=== PATIENT | male | born 1955 | race Caucasian/White ===

== ENCOUNTER 2017-09-20 22:20 | Observation (INO) | payer OTHER ==
[~2017-09-20] VITALS: Ht 172.7 cm; Wt 69.1 kg
[2017-09-20 23:25] LABS: HEMATOCRIT 34.3 % (38.0-50.0); HEMOGLOBIN 11.7 G/DL (12.5-16.6); MCH 28.5 PG (29.0-34.0); MCHC 34.1 G/DL (30.0-36.0); MCV 83.5 FL (86-99); PLATELET COUNT 280 K/uL (156-360); RBC DIS.WIDTH-CV 12.2 % (11.8-14.6); RBC DIS.WIDTH-SD 37.2 % (39-53); RED BLOOD COUNT 4.11 M/uL (4.00-5.50); WHITE BLOOD COUNT 8.6 K/uL (4.1-10.2)
[2017-09-20 23:35] LABS: ALBUMIN 3.4 g/dL (3.2-4.8); CHLORIDE 100 mEq/L (99-109); POTASSIUM 4.3 mEq/L (3.7-5.4); SODIUM 139 mEq/L (136-147)
[2017-09-20 23:37] LABS: GLUCOSE 131 mg/dL (70-99); TOTAL PROTEIN 7.2 g/dL (6.4-8.3)
[2017-09-20 23:39] LABS: TOTAL BILIRUBIN 0.5 mg/dL (0.0-1.0)
[2017-09-20 23:41] LABS: ALKALINE PHOSPHATASE 135 IU/L (3-129); CREATININE 0.8 mg/dL (0.6-1.3); GFR ESTIMATE (CALCULATED) > 59 mL/min/ (58.99-99999)
[2017-09-20 23:42] LABS: UREA NITROGEN (BUN) 12 mg/dL (9-23)
[2017-09-20 23:43] LABS: AST (GOT) 36 IU/L (2-34)
[2017-09-20 23:44] LABS: ALT (GPT) 30 IU/L (3-49); LIPASE 28 U/L (1.0-51.0)
[2017-09-21 00:23] LABS: INTER. NORMALIZED RATIO 1.5
[2017-09-21 00:25] LABS: PTT 33.2 SEC (25-37)
[2017-09-21 06:10] VITALS: BP 123/61
[2017-09-21 10:00] LABS: HEMATOCRIT 33.4 % (38.0-50.0); MCH 27.6 PG (29.0-34.0); MCHC 32.9 G/DL (30.0-36.0); MCV 83.7 FL (86-99); PLATELET COUNT 228 K/uL (156-360); RBC DIS.WIDTH-CV 12.2 % (11.8-14.6); RBC DIS.WIDTH-SD 37.1 % (39-53); RED BLOOD COUNT 3.99 M/uL (4.00-5.50); WHITE BLOOD COUNT 7.1 K/uL (4.1-10.2)
[2017-09-21 10:30] LABS: ALBUMIN 2.9 G/DL (3.2-4.8); ALKALINE PHOSPHATASE 100 IU/L (3-129); ALT (GPT) 21 IU/L (3-49); AST (GOT) 26 IU/L (2-34); CHLORIDE 106 MEQ/L (99-109); CREATININE 0.7 MG/DL (0.6-1.3); DIRECT BILIRUBIN 0.2 mg/dL (0.0-0.3); GFR ESTIMATE (CALCULATED) > 59 mL/min/ (58.99-99999); GLUCOSE 106 mg/dL (70-99); SODIUM 142 MEQ/L (136-147); TOTAL BILIRUBIN 0.5 MG/DL (0.0-1.0); TOTAL PROTEIN 6.7 G/DL (6.4-8.3); UREA NITROGEN (BUN) 8 mg/dL (9-23)
[2017-09-21 16:32] VITALS: BP 171/80
[2017-09-21 23:33] VITALS: BP 131/64
[2017-09-22 08:11] VITALS: BP 136/74
[2017-09-22 16:25] VITALS: BP 120/62
[2017-09-22 23:25] VITALS: BP 130/60
[2017-09-23 06:42] LABS: HEMATOCRIT 33.8 % (38.0-50.0); MCH 27.3 PG (29.0-34.0); MCHC 32.5 G/DL (30.0-36.0); MCV 83.9 FL (86-99); PLATELET COUNT 244 K/uL (156-360); RBC DIS.WIDTH-CV 12.3 % (11.8-14.6); RBC DIS.WIDTH-SD 37.8 % (39-53); RED BLOOD COUNT 4.03 M/uL (4.00-5.50); WHITE BLOOD COUNT 7.5 K/uL (4.1-10.2)
[2017-09-23 07:07] LABS: ALBUMIN 2.4 G/DL (3.2-4.8); ALKALINE PHOSPHATASE 93 IU/L (3-129); ALT (GPT) 16 IU/L (3-49); AST (GOT) 18 IU/L (2-34); CHLORIDE 102 MEQ/L (99-109); CREATININE 0.6 MG/DL (0.6-1.3); GFR ESTIMATE (CALCULATED) > 59 mL/min/ (58.99-99999); GLUCOSE 142 mg/dL (70-99); POTASSIUM 3.9 MEQ/L (3.7-5.4); SODIUM 136 MEQ/L (136-147); TOTAL BILIRUBIN 0.5 MG/DL (0.0-1.0); UREA NITROGEN (BUN) 8 mg/dL (9-23)
[2017-09-23 07:09] LABS: TOTAL PROTEIN 5.3 G/DL (6.4-8.3)
[2017-09-23 07:45] VITALS: BP 128/62
[2017-09-23] MEDS ORDERED: AUGMENTIN875 MG PO (11:26)
[2017-09-23] MEDS ORDERED: OXYCODONE HCL5 MG PO (11:28)
== END 2017-09-23 13:35 | disposition home or self-care (01) ==
LOC: EME 22:20 → EDOF 09-21 05:06 → 5EAST 09-21 05:06 → EDOF 09-21 05:06 → ENRESERV 09-21 05:07 → 5EAST 09-21 05:55
PROVIDERS: Emergency Medicine; Physician Assistant
PROC: 0FB13ZX Excision of Right Lobe Liver, Percutaneous Approach, Diagnostic (ICD-10-PCS; principal; 2017-09-21)
DX: C22.9 Malignant neoplasm of liver, not specified as primary or secondary (principal); B18.2 Chronic viral hepatitis C; M25.511 Pain in right shoulder; Z87.891 Personal history of nicotine dependence
CPT/HCPCS: 73030; 74183; 77012; 80048; 80053; 80076; 82105 90; 83690; 85027; 85610; 85730; 87040; 88305; 88341 TC; 88342 TC; 99281; 99284; G0378; J0696; J1644; J3010; S0030

== ENCOUNTER → 2017-09-20 | Outpatient (CLI) | payer OTHER ==
[~2017-09-20] MED LIST: AUGMENTIN875 MG PO; OXYCODONE HCL5 MG PO
== END | disposition home or self-care (01) ==
LOC: RAD 20:14
DX: K76.89 Other specified diseases of liver (principal); J90 Pleural effusion, not elsewhere classified; J98.11 Atelectasis; Z86.19 Personal history of other infectious and parasitic diseases
CPT/HCPCS: 74176

== ENCOUNTER 2017-10-27 21:50 | Inpatient (IN) | payer OTHER ==
[~2017-10-27] VITALS: Ht 175.3 cm; Wt 76.2 kg
[2017-10-27 22:43] LABS: BASOPHIL (%) 0.1 % (0-1); EOSINOPHIL (%) 0.1 % (0-5); HEMATOCRIT 30.6 % (38.0-50.0); HEMOGLOBIN 10.7 G/DL (12.5-16.6); MCH 24.7 PG (29.0-34.0); MCV 70.5 FL (86-99); MONOCYTE (%) 7.4 % (3-12); MONOCYTE COUNT 1.4 K/uL (0-0.8); NEUTROPHIL (%) 86.4 % (45-76); NEUTROPHIL COUNT 16.6 K/uL (1.8-6.4); PLATELET COUNT 286 K/uL (156-360); RBC DIS.WIDTH-CV 16.2 % (11.8-14.6); RBC DIS.WIDTH-SD 40.9 % (39-53); RED BLOOD COUNT 4.34 M/uL (4.00-5.50); WHITE BLOOD COUNT 19.2 K/uL (4.1-10.2)
[2017-10-27 22:44] LABS: INTER. NORMALIZED RATIO 1.5
[2017-10-27 22:46] LABS: ALBUMIN 2.2 g/dL (3.2-4.8); CHLORIDE 82 mEq/L (99-109); POTASSIUM 5.3 mEq/L (3.7-5.4); SODIUM 120 mEq/L (136-147)
[2017-10-27 22:47] LABS: PTT 32.4 SEC (25-37)
[2017-10-27 22:49] LABS: GLUCOSE 177 mg/dL (70-99); TOTAL PROTEIN 6.3 g/dL (6.4-8.3)
[2017-10-27 22:51] LABS: TOTAL BILIRUBIN 4.4 mg/dL (0.0-1.0)
[2017-10-27 22:52] LABS: ALKALINE PHOSPHATASE 414 IU/L (3-129); CREATININE 0.7 mg/dL (0.6-1.3); GFR ESTIMATE (CALCULATED) > 59 mL/min/ (58.99-99999)
[2017-10-27 22:54] LABS: AST (GOT) 76 IU/L (2-34); DIRECT BILIRUBIN 3.5 mg/dL (0.0-0.3); UREA NITROGEN (BUN) 15 mg/dL (9-23)
[2017-10-27 22:55] LABS: ALT (GPT) 48 IU/L (3-49)
[2017-10-27 22:58] LABS: TROP-I INTERPRETATION NEGATIVE; TROPONIN-I < 0.01 ng/mL (0.0-0.30)
[2017-10-28] MEDS ORDERED: ULTRAM ER300 MG PO (00:33)
[2017-10-28] MEDS ORDERED: ULTRAM50 MG PO (00:34)
[2017-10-28] MEDS ORDERED: MILK OF MAGN PO (00:34)
[2017-10-28] MEDS ORDERED: MIRALAX17 GM PO (00:34)
[2017-10-28 02:08] LABS: APPEARANCE SL.HAZY ((CLEAR)); BILIRUBIN SMALL; BLOOD NEGATIVE; COLOR AMBER ((YELLOW)); GLUCOSE (STRIP) NEGATIVE; KETONES NEGATIVE; LEUKOCYTES NEGATIVE; NITRITE NEGATIVE; PROTEIN (STRIP) NEGATIVE
[2017-10-28 02:15] LABS: BACTERIA RARE /HPF; EPITHELIAL CELLS NONE SEEN /HPF; MUCUS TRACE /LPF; RED BLOOD CELLS 0-5 /HPF (0-5); UCUL ADDED? NO; WHITE BLOOD CELLS 0-5 /HPF (0-5)
[2017-10-28 04:53] VITALS: BP 136/82
[2017-10-28 06:53] LABS: TROP-I INTERPRETATION NEGATIVE; TROPONIN-I < 0.01 ng/mL (0.0-0.30)
[2017-10-28 08:45] LABS: TYPE OF FLUID PLEURAL
[2017-10-28 09:22] LABS: APPEARANCE SL. HAZY-YELLOW; BODY FLUID EOSINOPHILS 0 % (0-25); BODY FLUID RBC'S 2000 /MM^3 (0-100); BODY FLUID WBC'S 1329 /MM^3 (0-500); MONONUCLEAR WBC'S 26 %; POLYNUCLEAR WBC'S 74 % (0-25)
[2017-10-28 09:36] LABS: BODY FLUID GLUCOSE 131 MG/DL; BODY FLUID PROTEIN < 3.0 G/DL
[2017-10-28 09:37] LABS: HEMATOCRIT 28.1 % (38.0-50.0); HEMOGLOBIN 9.6 G/DL (12.5-16.6); MCH 23.9 PG (29.0-34.0); MCHC 34.2 G/DL (30.0-36.0); MCV 70.1 FL (86-99); PLATELET COUNT 242 K/uL (156-360); RBC DIS.WIDTH-CV 16.2 % (11.8-14.6); RBC DIS.WIDTH-SD 40.7 % (39-53); RED BLOOD COUNT 4.01 M/uL (4.00-5.50); WHITE BLOOD COUNT 15.6 K/uL (4.1-10.2)
[2017-10-28 10:32] VITALS: BP 135/80
[2017-10-28 11:18] LABS: CHLORIDE 84 MEQ/L (99-109); CREATININE 0.5 MG/DL (0.6-1.3); GFR ESTIMATE (CALCULATED) > 59 mL/min/ (58.99-99999); GLUCOSE 121 mg/dL (70-99); POTASSIUM 4.7 MEQ/L (3.7-5.4); UREA NITROGEN (BUN) 14 mg/dL (9-23)
[2017-10-28 11:19] LABS: SODIUM 118 MEQ/L (136-147)
[2017-10-28 12:10] LABS: TROP-I INTERPRETATION NEGATIVE; TROPONIN-I < 0.01 ng/mL (0.0-0.30)
[2017-10-28 12:43] VITALS: BP 134/76
[2017-10-28 16:49] VITALS: BP 131/84
[2017-10-28 16:54] LABS: CHLORIDE 84 MEQ/L (99-109); CREATININE 0.5 MG/DL (0.6-1.3); GFR ESTIMATE (CALCULATED) > 59 mL/min/ (58.99-99999); GLUCOSE 172 mg/dL (70-99); UREA NITROGEN (BUN) 16 mg/dL (9-23)
[2017-10-28 16:55] LABS: SODIUM 117 MEQ/L (136-147)
[2017-10-28 20:04] VITALS: BP 116/72
[2017-10-29 00:09] VITALS: BP 119/78
[2017-10-29 01:06] LABS: CHLORIDE 85 mEq/L (99-109); SODIUM 120 mEq/L (136-147)
[2017-10-29 01:08] LABS: GLUCOSE 139 mg/dL (70-99)
[2017-10-29 01:12] LABS: CREATININE 0.6 mg/dL (0.6-1.3); GFR ESTIMATE (CALCULATED) > 59 mL/min/ (58.99-99999)
[2017-10-29 01:13] LABS: UREA NITROGEN (BUN) 16 mg/dL (9-23)
[2017-10-29 04:04] VITALS: BP 118/72
[2017-10-29 06:49] LABS: BASOPHIL (%) 0.1 % (0-1); EOSINOPHIL (%) 0.1 % (0-5); HEMATOCRIT 27.7 % (38.0-50.0); HEMOGLOBIN 9.6 G/DL (12.5-16.6); IMMATURE GRANULOCYTE (%) 0.8 % (0.0-0.7); LYMPHOCYTE (%) 6.4 % (15-42); LYMPHOCYTE COUNT 1.1 K/uL (1.0-2.8); MCH 24.4 PG (29.0-34.0); MCHC 34.7 G/DL (30.0-36.0); MCV 70.3 FL (86-99); MONOCYTE (%) 7.9 % (3-12); MONOCYTE COUNT 1.3 K/uL (0-0.8); NEUTROPHIL (%) 84.7 % (45-76); NEUTROPHIL COUNT 14.3 K/uL (1.8-6.4); PLATELET COUNT 234 K/uL (156-360); RBC DIS.WIDTH-CV 16.7 % (11.8-14.6); RBC DIS.WIDTH-SD 42.2 % (39-53); RED BLOOD COUNT 3.94 M/uL (4.00-5.50); WHITE BLOOD COUNT 16.9 K/uL (4.1-10.2)
[2017-10-29 07:06] LABS: CHLORIDE 87 MEQ/L (99-109); CREATININE 0.7 MG/DL (0.6-1.3); GFR ESTIMATE (CALCULATED) > 59 mL/min/ (58.99-99999); GLUCOSE 148 mg/dL (70-99); MAGNESIUM 2.2 mg/dl (1.3-2.7); PHOSPHORUS 3.6 mg/dL (2.5-4.9); SODIUM 123 MEQ/L (136-147); UREA NITROGEN (BUN) 18 mg/dL (9-23)
[2017-10-29 07:07] LABS: ALBUMIN 1.8 G/DL (3.2-4.8); ALKALINE PHOSPHATASE 324 IU/L (3-129); ALT (GPT) 36 IU/L (3-49); AST (GOT) 63 IU/L (2-34); CHLORIDE 86 MEQ/L (99-109); CREATININE 0.6 MG/DL (0.6-1.3); GFR ESTIMATE (CALCULATED) > 59 mL/min/ (58.99-99999); GLUCOSE 149 mg/dL (70-99); POTASSIUM 4.9 MEQ/L (3.7-5.4); SODIUM 121 MEQ/L (136-147); TOTAL BILIRUBIN 4.5 MG/DL (0.0-1.0); TOTAL PROTEIN 5.3 G/DL (6.4-8.3); UREA NITROGEN (BUN) 18 mg/dL (9-23)
[2017-10-29 07:45] VITALS: BP 128/67
[2017-10-29 12:13] VITALS: BP 131/72
[2017-10-29 13:38] LABS: CHLORIDE 86 MEQ/L (99-109); CREATININE 0.7 MG/DL (0.6-1.3); GFR ESTIMATE (CALCULATED) > 59 mL/min/ (58.99-99999); GLUCOSE 179 mg/dL (70-99); SODIUM 124 MEQ/L (136-147); UREA NITROGEN (BUN) 18 mg/dL (9-23)
[2017-10-29 15:48] VITALS: BP 114/77
[2017-10-29 20:14] VITALS: BP 114/77
[2017-10-30] VITALS (7 sets, daily range): BP systolic 118–132; BP diastolic 70–86
[2017-10-30] LABS: BODY FLUID PH 7.8 (())
[2017-10-30 06:40] LABS: CHLORIDE 89 MEQ/L (99-109); CREATININE 0.6 MG/DL (0.6-1.3); GFR ESTIMATE (CALCULATED) > 59 mL/min/ (58.99-99999); GLUCOSE 130 mg/dL (70-99); POTASSIUM 5.2 MEQ/L (3.7-5.4); SODIUM 125 MEQ/L (136-147); UREA NITROGEN (BUN) 19 mg/dL (9-23)
[2017-10-31 05:03] VITALS: BP 129/70
[2017-10-31 05:57] LABS: BASOPHIL (%) 0.1 % (0-1); EOSINOPHIL (%) 0.1 % (0-5); HEMATOCRIT 27.6 % (38.0-50.0); HEMOGLOBIN 9.2 G/DL (12.5-16.6); IMMATURE GRANULOCYTE (%) 0.8 % (0.0-0.7); LYMPHOCYTE COUNT 1.1 K/uL (1.0-2.8); MCH 23.8 PG (29.0-34.0); MCHC 33.3 G/DL (30.0-36.0); MCV 71.5 FL (86-99); MONOCYTE (%) 8.3 % (3-12); MONOCYTE COUNT 1.2 K/uL (0-0.8); NEUTROPHIL (%) 82.7 % (45-76); NEUTROPHIL COUNT 11.7 K/uL (1.8-6.4); RBC DIS.WIDTH-CV 17.2 % (11.8-14.6); RBC DIS.WIDTH-SD 43.7 % (39-53); RED BLOOD COUNT 3.86 M/uL (4.00-5.50); WHITE BLOOD COUNT 14.2 K/uL (4.1-10.2)
[2017-10-31 06:15] LABS: ALBUMIN 1.6 G/DL (3.2-4.8); ALKALINE PHOSPHATASE 341 IU/L (3-129); ALT (GPT) 34 IU/L (3-49); AST (GOT) 55 IU/L (2-34); CHLORIDE 89 MEQ/L (99-109); CREATININE 0.7 MG/DL (0.6-1.3); GFR ESTIMATE (CALCULATED) > 59 mL/min/ (58.99-99999); GLUCOSE 150 mg/dL (70-99); POTASSIUM 5.2 MEQ/L (3.7-5.4); SODIUM 125 MEQ/L (136-147); TOTAL BILIRUBIN 3.7 MG/DL (0.0-1.0); TOTAL PROTEIN 4.7 G/DL (6.4-8.3); UREA NITROGEN (BUN) 19 mg/dL (9-23)
[2017-10-31 06:35] LABS: PLAT.SUFFICIENCY DECREASED
[2017-10-31 06:36] LABS: PLATELET COUNT 147 K/uL (156-360)
[2017-10-31 07:15] VITALS: BP 118/70
[2017-10-31 15:50] VITALS: BP 133/63
[2017-10-31 17:16] LABS: CHLORIDE 88 MEQ/L (99-109); SODIUM 124 MEQ/L (136-147)
[2017-10-31 17:22] LABS: CREATININE 0.7 MG/DL (0.6-1.3); GFR ESTIMATE (CALCULATED) > 59 mL/min/ (58.99-99999); GLUCOSE 148 mg/dL (70-99); UREA NITROGEN (BUN) 19 mg/dL (9-23)
[2017-10-31 23:15] VITALS: BP 123/73
[2017-11-01 05:59] LABS: BASOPHIL (%) 0.1 % (0-1); EOSINOPHIL (%) 0.2 % (0-5); HEMATOCRIT 27.4 % (38.0-50.0); HEMOGLOBIN 9.1 G/DL (12.5-16.6); IMMATURE GRANULOCYTE (%) 1.4 % (0.0-0.7); LYMPHOCYTE (%) 8.2 % (15-42); MCH 23.9 PG (29.0-34.0); MCHC 33.2 G/DL (30.0-36.0); MCV 71.9 FL (86-99); MONOCYTE (%) 8.3 % (3-12); MONOCYTE COUNT 1.1 K/uL (0-0.8); NEUTROPHIL (%) 81.8 % (45-76); NEUTROPHIL COUNT 10.4 K/uL (1.8-6.4); PLATELET COUNT 137 K/uL (156-360); RBC DIS.WIDTH-CV 18.2 % (11.8-14.6); RBC DIS.WIDTH-SD 45.5 % (39-53); RED BLOOD COUNT 3.81 M/uL (4.00-5.50); WHITE BLOOD COUNT 12.7 K/uL (4.1-10.2)
[2017-11-01 06:22] LABS: ALBUMIN 1.7 G/DL (3.2-4.8); ALKALINE PHOSPHATASE 365 IU/L (3-129); ALT (GPT) 35 IU/L (3-49); AST (GOT) 63 IU/L (2-34); CHLORIDE 91 MEQ/L (99-109); CREATININE 0.7 MG/DL (0.6-1.3); GFR ESTIMATE (CALCULATED) > 59 mL/min/ (58.99-99999); GLUCOSE 130 mg/dL (70-99); POTASSIUM 5.2 MEQ/L (3.7-5.4); SODIUM 127 MEQ/L (136-147); TOTAL BILIRUBIN 4.2 MG/DL (0.0-1.0); TOTAL PROTEIN 4.9 G/DL (6.4-8.3); UREA NITROGEN (BUN) 16 mg/dL (9-23)
[2017-11-01 07:37] VITALS: BP 121/71
[2017-11-01 16:13] VITALS: BP 128/77
[2017-11-01 23:13] VITALS: BP 133/70
[2017-11-02 07:01] LABS: BASOPHIL (%) 0.1 % (0-1); EOSINOPHIL (%) 0.3 % (0-5); HEMATOCRIT 25.8 % (38.0-50.0); HEMOGLOBIN 8.5 G/DL (12.5-16.6); LYMPHOCYTE (%) 8.6 % (15-42); MCH 23.9 PG (29.0-34.0); MCHC 32.9 G/DL (30.0-36.0); MCV 72.7 FL (86-99); MONOCYTE (%) 8.5 % (3-12); NEUTROPHIL (%) 81.5 % (45-76); NEUTROPHIL COUNT 9.6 K/uL (1.8-6.4); PLATELET COUNT 122 K/uL (156-360); RBC DIS.WIDTH-SD 46.3 % (39-53); RED BLOOD COUNT 3.55 M/uL (4.00-5.50); WHITE BLOOD COUNT 11.7 K/uL (4.1-10.2)
[2017-11-02 07:08] LABS: CHLORIDE 91 MEQ/L (99-109); CREATININE 0.9 MG/DL (0.6-1.3); GFR ESTIMATE (CALCULATED) > 59 mL/min/ (58.99-99999); GLUCOSE 132 mg/dL (70-99); POTASSIUM 5.1 MEQ/L (3.7-5.4); SODIUM 129 MEQ/L (136-147); UREA NITROGEN (BUN) 18 mg/dL (9-23)
[2017-11-02 08:04] VITALS: BP 111/66
[2017-11-02 13:53] LABS: Heparin Induced Plt Ab Negative (Negative)
[2017-11-02 15:00] VITALS: BP 131/72
[2017-11-02 17:02] LABS: UFH SRA Result Negative (Negative)
[2017-11-03 00:47] VITALS: BP 139/79
[2017-11-03 06:50] LABS: HEMATOCRIT 26.2 % (38.0-50.0); HEMOGLOBIN 8.5 G/DL (12.5-16.6); MCH 23.5 PG (29.0-34.0); MCHC 32.4 G/DL (30.0-36.0); MCV 72.6 FL (86-99); PLATELET COUNT 131 K/uL (156-360); RBC DIS.WIDTH-CV 18.3 % (11.8-14.6); RBC DIS.WIDTH-SD 47.2 % (39-53); RED BLOOD COUNT 3.61 M/uL (4.00-5.50); WHITE BLOOD COUNT 12.8 K/uL (4.1-10.2)
[2017-11-03 07:10] LABS: ALBUMIN 2.6 G/DL (3.2-4.8); ALKALINE PHOSPHATASE 392 IU/L (3-129); ALT (GPT) 31 IU/L (3-49); AST (GOT) 49 IU/L (2-34); CHLORIDE 90 MEQ/L (99-109); CREATININE 0.9 MG/DL (0.6-1.3); GFR ESTIMATE (CALCULATED) > 59 mL/min/ (58.99-99999); GLUCOSE 141 mg/dL (70-99); POTASSIUM 5.1 MEQ/L (3.7-5.4); SODIUM 127 MEQ/L (136-147); TOTAL PROTEIN 5.5 G/DL (6.4-8.3); UREA NITROGEN (BUN) 19 mg/dL (9-23)
[2017-11-03 07:12] LABS: TOTAL BILIRUBIN 5.9 MG/DL (0.0-1.0)
[2017-11-03 07:58] VITALS: BP 126/66
[2017-11-03] MEDS ORDERED: MORPHINE CON20 MG/M1 PO (11:08)
[2017-11-03] MEDS ORDERED: LORAZEPAM0.5 MG PO (11:08)
[2017-11-03] MEDS ORDERED: HYOSCYAMINE0.125 M1 PO (11:08)
[2017-11-03 16:43] VITALS: BP 120/66
[2017-11-03 21:30] VITALS: BP 131/76
[2017-11-04 00:51] VITALS: BP 129/78
[2017-11-04 08:07] VITALS: BP 129/78
[2017-11-04] MEDS ORDERED: MYCOSTATIN 100,60 ML PO (13:35)
[2017-11-04] MEDS ORDERED: ZOLPIDEM TARTRAT5 MG PO (13:35)
[2017-11-04] MEDS ORDERED: DRONABINOL2.5 MG PO (13:35)
[2017-11-04] MEDS ORDERED: MORPHINE CON20 MG/M1 PO (13:49)
[2017-11-04] MEDS ORDERED: ULTRAM50 MG PO (15:30)
== END 2017-11-04 16:55 | disposition home or self-care (01) | DRG 187 ==
LOC: EME → EDBD 21:50 → EME 21:50 → 2EAST 10-28 01:50 → EDOF 10-28 01:50 → ENRESERV 10-28 01:52 → 2EAST 10-28 04:41 → ENRESERV 10-29 → 5EAST 10-29 22:57
PROVIDERS: Anesthesiology; Emergency Medicine; Hospitalist; Internal Medicine; Internal Medicine Gastroenterology; Internal Medicine Hematology & Oncology; Internal Medicine Nephrology; Internal Medicine Pulmonary Disease; Physician Assistant
PROC: 0W993ZX Drainage of Right Pleural Cavity, Percutaneous Approach, Diagnostic (ICD-10-PCS; principal; 2017-10-28)
DX: J90 Pleural effusion, not elsewhere classified (principal); C77.2 Secondary and unspecified malignant neoplasm of intra-abdominal lymph nodes; R18.8 Other ascites; J98.11 Atelectasis; E22.2 Syndrome of inappropriate secretion of antidiuretic hormone; C22.0 Liver cell carcinoma; C79.9 Secondary malignant neoplasm of unspecified site; C77.9 Secondary and unspecified malignant neoplasm of lymph node, unspecified; Z51.5 Encounter for palliative care; C78.01 Secondary malignant neoplasm of right lung; C78.02 Secondary malignant neoplasm of left lung; E46 Unspecified protein-calorie malnutrition; F05 Delirium due to known physiological condition; K56.7 Ileus, unspecified; C79.89 Secondary malignant neoplasm of other specified sites; K59.03 Drug induced constipation; T40.605A Adverse effect of unspecified narcotics, initial encounter; E86.0 Dehydration; I10 Essential (primary) hypertension; I25.10 Atherosclerotic heart disease of native coronary artery without angina pectoris; I35.0 Nonrheumatic aortic (valve) stenosis; M71.21 Synovial cyst of popliteal space [Baker], right knee; E83.119 Hemochromatosis, unspecified; R16.1 Splenomegaly, not elsewhere classified; E87.6 Hypokalemia; K72.90 Hepatic failure, unspecified without coma; D69.59 Other secondary thrombocytopenia; T40.4X5A Adverse effect of other synthetic narcotics, initial encounter; T40.2X5A Adverse effect of other opioids, initial encounter; Z87.891 Personal history of nicotine dependence; Z68.24 Body mass index [BMI] 24.0-24.9, adult; Z86.19 Personal history of other infectious and parasitic diseases; Z90.49 Acquired absence of other specified parts of digestive tract
CPT/HCPCS: 70450; 71046; 71275; 72125; 72128; 74018; 74183; 76942; 80048; 80048 91; 80053; 80076; 81003; 82105 90; 82140; 82378; 82533 91; 82945; 83615; 83615 91; 83735; 83930; 83935; 83986 90; 84100; 84157; 84300; 84484; 85025; 85027; 85049; 85610; 85730; 86022 90; 86301 90; 87070; 87205; 88108; 88305; 88341 TC; 88342 TC; 89051; 93005; 93970; 94799; 99281; 99285; C9113; J1644; J2405; J2765; J7030; P9047; Q0167; S0030